=== PATIENT | female | born 1980 | race Caucasian/White ===

== ENCOUNTER 2020-10-15 20:08 | Emergency (ER) | payer OTHER, SELFPAY | END 2020-10-15 23:00 | disposition home or self-care (01) | LOC: ERS 20:08 | DX: R53.81 Other malaise (principal); T50.B95A Adverse effect of other viral vaccines, initial encounter; F17.210 Nicotine dependence, cigarettes, uncomplicated | CPT/HCPCS: 99283 ==

== ENCOUNTER 2021-03-27 07:58 | Emergency (ER) | payer BC, SELFPAY | END 2021-03-27 09:43 | disposition home or self-care (01) | LOC: ERS 07:58 | DX: J20.9 Acute bronchitis, unspecified (principal); F17.210 Nicotine dependence, cigarettes, uncomplicated | CPT/HCPCS: 71045 ==

== ENCOUNTER 2021-11-16 11:14 | Emergency (ER) | payer BC ==
[2021-11-16] MEDS ORDERED: Ibuprofen 800 MG TAB ONE (12:13)
== END 2021-11-16 13:18 | disposition home or self-care (01) ==
LOC: ERS 11:14
DX: S83.92XA Sprain of unspecified site of left knee, initial encounter (principal); F17.210 Nicotine dependence, cigarettes, uncomplicated; X50.9XXA Other and unspecified overexertion or strenuous movements or postures, initial encounter

== ENCOUNTER 2022-04-22 07:22 | Emergency (ER) | payer BC | END 2022-04-22 08:33 | disposition home or self-care (01) | LOC: ERS 07:22 | DX: J06.9 Acute upper respiratory infection, unspecified (principal); F17.210 Nicotine dependence, cigarettes, uncomplicated | CPT/HCPCS: 99283 ==

== ENCOUNTER 2022-10-16 15:16 | Emergency (ER) | payer BC | END 2022-10-16 17:15 | disposition home or self-care (01) | LOC: ERS 15:16 | DX: J20.9 Acute bronchitis, unspecified (principal); F17.210 Nicotine dependence, cigarettes, uncomplicated | CPT/HCPCS: 71045 ==

== ENCOUNTER 2024-10-07 08:46 | Emergency (ER) | payer OTHER, SELFPAY ==
[2024-10-07] MEDS ORDERED: Ipratropium/Albuterol 3 ML NEB ONE (09:24)
[2024-10-07] MEDS ORDERED: methylPREDNISolone Sod Succ/PF 125 MG/2 ML VIAL ONE (09:24)
[2024-10-07 11:08] LABS: #Basophils 0.05 10x3/uL (0.0-0.2); %Basophils 0.5 % (0.0-1.0); %Eosinophils 1.5 % (0.0-10.0); %Lymphocytes 13.2 % (21.0-51.0); %Monocytes 4.5 % (0.0-10.0); Hematocrit 44.8 % (36.0-47.0); Hemoglobin 14.6 g/dL (12.0-16.0); Mean Corpuscular HGB CONC 32.6 g/dL (32.0-36.0); Mean Corpuscular Volume 95.1 fL (78.0-98.0); Mean Platelet Volume 9.6 fL (7.4-10.4); Platelet Count 304 10x3/uL (130-400); RBC Distribution Width 12.9 % (11.5-14.5); Red Blood Cell (RBC) Count 4.71 mill/uL (4.20-5.40)
[2024-10-07 11:22] LABS: ALT (SGPT) 14 U/L (8-55); AST (SGOT) 13 U/L (5-34); Albumin 3.4 g/dL (3.5-5.0); Alkaline Phosphatase 103 U/L (40-110); Anion Gap 12 mmol/L (10-20); BUN (Urea Nitrogen) 10 mg/dL (7.0-18.7); Bilirubin, Total 0.3 mg/dL (0.2-1.2); Calc. Creatinine Clearance 0 mL/min (70-130); Calcium 8.8 mg/dL (7.8-10.44); Carbon Dioxide 29 mmol/L (22-29); Chloride 102 mmol/L (98-107); Estimated GFR 79; Globulin 2.9 g/dL (2.4-3.5); Glucose 102 mg/dL (70-105); Potassium 4.2 mmol/L (3.5-5.1); Protein, Total 6.3 g/dL (6.0-8.3); Sodium 139 mmol/L (136-145)
[2024-10-07 11:24] LABS: BHCG - Serum Negative (NEGATIVE); Pregs Control Background? CLEAR/WHITE (CLR/WHITE); Pregs Control Bar Appear? YES (CONTROL BAR)
[2024-10-07 11:38] LABS: Troponin I Less than 0.010 ng/mL (< 0.028)
== END 2024-10-07 11:44 | disposition home or self-care (01) ==
LOC: ERS 08:46
DX: J18.9 Pneumonia, unspecified organism (principal); F17.210 Nicotine dependence, cigarettes, uncomplicated
CPT/HCPCS: 36415; 71046; 80053; 84484; 84703; 85025; 85379; 87428; 93005; 94640; 96372; J2919; J7620